=== PATIENT | male | born 1945 | race African-American/Black ===

== ENCOUNTER 2023-09-16 20:49 | Inpatient (IN) | payer OTHER ==
[2023-09-16] MEDS ORDERED: ASPIRIN 81 MG CHEWABLE TABLETS PO ONE (20:58)
[2023-09-16] MEDS ORDERED: ALBUTEROL SO4 2.5/IPRATROPIUM 0.5 INH SOL 3 ML VIAL.NEB. NEB ONE (21:17)
[2023-09-16] MEDS ORDERED: ALBUTEROL SO4 2.5/IPRATROPIUM 0.5 INH SOL 3 ML VIAL.NEB. NEB SCH (21:30)
[2023-09-16] MEDS ORDERED: ATORVASTATIN CA 80 MG TABLET (FP) PO ONE (21:42)
[2023-09-16 21:53] LABS: BASO % 0.3 % (0-2.0); HEMATOCRIT 13.8 % (35.4-49); LYMPH % 8.7 % (8-40); MCH 28.1 pg (25.7-33.7); MCHC 28.4 g/dl (32.0-35.9); MEAN PLT VOLUME 8.1 fl (7.5-11.1); MONO % 6.8 % (3.8-10.2); NEUT % 84.2 % (42.8-82.8); PLATELET COUNT 387 10^3/uL (134-434); RBC 1.39 M/mm3 (4.00-5.60); RDW 21.8 % (11.9-15.9)
[2023-09-16] MEDS ORDERED: ATORVASTATIN CA 80 MG TABLET (FP) ONE (21:53)
[2023-09-16 21:55] LABS: HEMOGLOBIN 3.9 GM/dL (11.7-16.9)
[2023-09-16 21:58] LABS: INR 1.32 (0.83-1.09); PROTHROMBIN TIME (PATIENT) 15.3 SEC (9.7-13.0)
[2023-09-16 22:01] LABS: ACTIVATED PTT 22.6 SECONDS (25.2-36.5)
[2023-09-16 22:03] LABS: CHLORIDE 101 mmol/L (98-107); POTASSIUM 5.4 mmol/L (3.5-5.1); SODIUM 136 mmol/L (136-145)
[2023-09-16 22:05] LABS: ANION GAP 21 mmol/L (4-13); BLOOD UREA NITROGEN 36.2 mg/dL (7-18); CALCIUM 9.1 mg/dL (8.5-10.1); CO2 14 mmol/L (21-32); GLUCOSE,RANDOM 85 mg/dL (74-106); MAGNESIUM 1.9 mg/dL (1.8-2.4)
[2023-09-16 22:06] LABS: ALBUMIN 2.1 g/dl (3.4-5.0)
[2023-09-16 22:08] LABS: SGOT/AST 19 U/L (15-37); SGPT/ALT 8 U/L (13-61)
[2023-09-16 22:10] LABS: BILIRUBIN,TOTAL 0.6 mg/dL (0.2-1); TOT PROT 5.8 g/dl (6.4-8.2)
[2023-09-16] MEDS ORDERED: ACETAMINOPHEN 1000 MG/100 ML BAG IVPB ONE (22:12)
[2023-09-16 22:13] LABS: ALK PHOS 103 U/L (45-117)
[2023-09-16] MEDS ORDERED: ACETAMINOPHEN INJECTION 100 ML IVPB ONE (22:44)
[2023-09-16 23:00] LABS: ARTERIAL BLD GAS O2 SATURATION 98.2 % (95-98); ARTERIAL BLOOD GAS BASE EXCESS -14.3 mmol/L (-2-2); ARTERIAL BLOOD GAS PO2 120.4 mmHg (80-100); ARTERIAL BLOOD GAS pH 7.328 (7.350-7.450)
[2023-09-16 23:01] LABS: ALLENS TEST POSITIVE
[2023-09-16 23:02] LABS: ANISOCYTOSIS 3+; MACROCYTOSIS 1+; TARGET CELLS 2+
[2023-09-16] MEDS ORDERED: RAPID SEQUENCE INTUBATION KIT NR ONE (23:13)
[2023-09-17] MEDS: SODIUM CHLORIDE 1,000 ML IV SCH ×2 (01:36→05:27)
[2023-09-17] MEDS: FENTANYL NS IVPB 500 MCG/100 ML BAG IVPB SCH ×3 (02:10→13:28)
[2023-09-17 02:32] LABS: HEMATOCRIT 18.6 % (35.4-49); MCH 27.9 pg (25.7-33.7); MCHC 29.1 g/dl (32.0-35.9); MEAN CELL VOLUME 95.7 fl (80-96); MEAN PLT VOLUME 7.9 fl (7.5-11.1); PLATELET COUNT 342 10^3/uL (134-434); RBC 1.94 M/mm3 (4.00-5.60); RDW 20.7 % (11.9-15.9); WHITE BLOOD COUNT 26.7 K/mm3 (4.0-10.0)
[2023-09-17] MEDS ORDERED: SODIUM CHLORIDE 1,000 ML IV STA ×3 (02:55→06:58)
[2023-09-17 03:04] LABS: HEMOGLOBIN 5.4 GM/dL (11.7-16.9)
[2023-09-17] MEDS ORDERED: MIDAZOLAM IN 0.9 % SOD.CHLORID 1 MG/1 ML PLAST..BAG ONE (03:11)
[2023-09-17 03:20] LABS: LACTIC ACID 14.2 mmol/L (0.4-2.0)
[2023-09-17] MEDS: MIDAZOLAM IN 0.9 % SOD.CHLORID 100 MG/100 ML PLAST..BAG IVPB SCH ×2 (03:40→13:28)
[2023-09-17] MEDS: MUPIROCIN 2% TOPICAL OINTMENT FOR DECOLONIZATION NS SCH ×3 (05:24→21:10)
[2023-09-17 06:01] LABS: ARTERIAL BLD GAS O2 SATURATION 99.1 % (95-98); ARTERIAL BLOOD GAS BASE EXCESS -12.2 mmol/L (-2-2); ARTERIAL BLOOD GAS PO2 192.8 mmHg (80-100); ARTERIAL BLOOD GAS pH 7.208 (7.350-7.450)
[2023-09-17 06:05] LABS: VENT MODE V-A/C; VENT RATE 12
[2023-09-17] MEDS ORDERED: DEXTROSE 50%-WATER 25 GM/50 ML DISP.SYRIN ONE (06:18)
[2023-09-17] MEDS ORDERED: VANCOMYCIN/WATER FOR INJ (PEG) 1,000 MG/200 ML BAG IVPB ONE (06:30)
[2023-09-17 06:38] LABS: ANISOCYTOSIS 2+; MACROCYTOSIS 0; OVALOCYTE 1+; ROULEAU 1+
[2023-09-17] MEDS ORDERED: DEXTROSE 50%-WATER 25 GM/50 ML DISP.SYRIN IVPUSH ONE (06:45)
[2023-09-17 07:10] LABS: CHLORIDE 102 mmol/L (98-107); POTASSIUM 5.4 mmol/L (3.5-5.1); SODIUM 136 mmol/L (136-145)
[2023-09-17 07:13] LABS: ALBUMIN 1.8 g/dl (3.4-5.0); ANION GAP 16 mmol/L (4-13); BLOOD UREA NITROGEN 39.2 mg/dL (7-18); CO2 18 mmol/L (21-32); GLUCOSE,RANDOM 151 mg/dL (74-106); MAGNESIUM 1.9 mg/dL (1.8-2.4)
[2023-09-17 07:16] LABS: CREATININE 2.2 mg/dL (0.55-1.3); SGOT/AST 76 U/L (15-37); SGPT/ALT 22 U/L (13-61)
[2023-09-17 07:17] LABS: BILIRUBIN,TOTAL 1.7 mg/dL (0.2-1)
[2023-09-17 07:18] LABS: TOT PROT 4.8 g/dl (6.4-8.2)
[2023-09-17 07:19] LABS: ALK PHOS 119 U/L (45-117)
[2023-09-17 07:28] LABS: CALCIUM 7.6 mg/dL (8.5-10.1)
[2023-09-17 08:19] LABS: EPI CELLS 12 /uL (0-25.1); HYALINE CASTS 14 /uL (0-3.1); URINE APPEARANCE CLOUDY; URINE BACTERIA >9,000 /uL (0-1359); URINE BILIRUBIN NEGATIVE (NEGATIVE); URINE COLOR DK YELLOW; URINE GLUCOSE (UA) NEGATIVE (NEGATIVE); URINE KETONE TRACE (NEGATIVE); URINE LEUK ESTERASE TRACE (NEGATIVE); URINE NITRITE NEGATIVE (NEGATIVE); URINE PROTEIN 2+ (NEGATIVE); URINE RBC 19 /uL (0-23.9); URINE WBC 221 /uL (0-25.8)
[2023-09-17] MEDS: CEFTRIAXONE 1 GM in DEXTROSE 5%-WATER - 50 ML IVPB SCH (08:57)
[2023-09-17] MEDS: SODIUM ZIRCONIUM CYCLOSILICATE (LOKELMA) 5 GM PACKET PO SCH (10:10)
[2023-09-17] MEDS: PANTOPRAZOLE SODIUM 40 MG VIAL IVPUSH SCH (10:11)
[2023-09-17 14:37] LABS: LACTIC ACID 3.5 mmol/L (0.4-2.0)
[2023-09-17] MEDS: NOREPINEPHRINE BITARTRATE 4,000 MCG in DEXTROSE 5%-WATER - 496 ML IV SCH (21:09)
[2023-09-17] MEDS: CHLORHEXIDINE GLUCONATE 4% CLEANSER FOR DECOLONIZATION TP SCH (21:10)
[2023-09-17 22:17] LABS: HEMATOCRIT 22.2 % (35.4-49); HEMOGLOBIN 7.2 GM/dL (11.7-16.9); MCH 28.5 pg (25.7-33.7); MCHC 32.3 g/dl (32.0-35.9); MEAN CELL VOLUME 88.3 fl (80-96); MEAN PLT VOLUME 7.3 fl (7.5-11.1); PLATELET COUNT 276 10^3/uL (134-434); RBC 2.51 M/mm3 (4.00-5.60); RDW 17.5 % (11.9-15.9); WHITE BLOOD COUNT 19.7 K/mm3 (4.0-10.0)
[2023-09-18 07:38] LABS: HEMOGLOBIN 8.2 GM/dL (11.7-16.9); MCH 29.3 pg (25.7-33.7); MEAN CELL VOLUME 88.7 fl (80-96); PLATELET COUNT 241 10^3/uL (134-434); RBC 2.81 M/mm3 (4.00-5.60); RDW 17.8 % (11.9-15.9); WHITE BLOOD COUNT 24.3 K/mm3 (4.0-10.0)
[2023-09-18 09:28] LABS: ANISOCYTOSIS 0; MACROCYTOSIS 0
[2023-09-18] MEDS: PANTOPRAZOLE SODIUM 40 MG VIAL IVPUSH SCH (09:37)
[2023-09-18] MEDS: CEFTRIAXONE 1 GM in DEXTROSE 5%-WATER - 50 ML IVPB SCH (09:37)
[2023-09-18] MEDS: NOREPINEPHRINE BITARTRATE 4,000 MCG in DEXTROSE 5%-WATER - 496 ML IV SCH ×2 (09:37→23:32)
[2023-09-18] MEDS: SODIUM ZIRCONIUM CYCLOSILICATE (LOKELMA) 5 GM PACKET PO SCH (09:37)
[2023-09-18] MEDS: MUPIROCIN 2% TOPICAL OINTMENT FOR DECOLONIZATION NS SCH ×2 (09:37→21:02)
[2023-09-18] MEDS: SODIUM CHLORIDE 1,000 ML IV SCH (09:38)
[2023-09-18 11:34] LABS: POTASSIUM 4.3 mmol/L (3.5-5.1)
[2023-09-18 11:37] LABS: CALCIUM 7.9 mg/dL (8.5-10.1)
[2023-09-18 11:38] LABS: BLOOD UREA NITROGEN 42.1 mg/dL (7-18)
[2023-09-18 11:41] LABS: CREATININE 1.9 mg/dL (0.55-1.3)
[2023-09-18 11:42] LABS: TOT PROT 5.4 g/dl (6.4-8.2)
[2023-09-18 11:43] LABS: BILIRUBIN,TOTAL 0.8 mg/dL (0.2-1)
[2023-09-18] MEDS: ALBUTEROL SO4 2.5/IPRATROPIUM 0.5 INH SOL 3 ML VIAL.NEB. NEB SCH ×3 (14:28→20:40)
[2023-09-18] MEDS: SCOPOLAMINE HYDROBROMIDE 1 PATCH PATCH.TD72 TD SCH (14:32)
[2023-09-18] MEDS ORDERED: DEXTROSE 50%-WATER 25 GM/50 ML DISP.SYRIN IVPUSH PRN (16:30)
[2023-09-18] MEDS ORDERED: DEXTROSE 5%-0.45% SALINE 1,000 ML IV SCH (16:45)
[2023-09-18 16:48] LABS: ARTERIAL BLD GAS O2 SATURATION 95.1 % (95-98); ARTERIAL BLOOD GAS BASE EXCESS -5.4 mmol/L (-2-2); ARTERIAL BLOOD GAS pH 7.293 (7.350-7.450)
[2023-09-18 16:53] LABS: ALLENS TEST POSITIVE
[2023-09-18] MEDS ORDERED: DEXTROSE 5%-NORMAL SALINE 1,000 ML IV SCH (17:45)
[2023-09-18] MEDS: CHLORHEXIDINE GLUCONATE 4% CLEANSER FOR DECOLONIZATION TP SCH (21:02)
[2023-09-18] MEDS ORDERED: LACTATED RINGERS SOLUTION 1000 ML INFUS.BAG IV ONE (21:14)
[2023-09-19 06:51] LABS: ARTERIAL BLOOD GAS BASE EXCESS -5.4 mmol/L (-2-2); ARTERIAL BLOOD GAS PO2 120.1 mmHg (80-100); ARTERIAL BLOOD GAS pH 7.301 (7.350-7.450)
[2023-09-19 06:58] LABS: ALLENS TEST POSITIVE
[2023-09-19] MEDS: ALBUTEROL SO4 2.5/IPRATROPIUM 0.5 INH SOL 3 ML VIAL.NEB. NEB SCH ×4 (08:15→20:30)
[2023-09-19 08:23] LABS: HEMATOCRIT 28.2 % (35.4-49); HEMOGLOBIN 9.2 GM/dL (11.7-16.9); MCH 29.3 pg (25.7-33.7); MCHC 32.5 g/dl (32.0-35.9); MEAN PLT VOLUME 8.4 fl (7.5-11.1); PLATELET COUNT 201 10^3/uL (134-434); RBC 3.13 M/mm3 (4.00-5.60); RDW 18.7 % (11.9-15.9); WHITE BLOOD COUNT 19.3 K/mm3 (4.0-10.0)
[2023-09-19 08:37] LABS: POTASSIUM 4.2 mmol/L (3.5-5.1)
[2023-09-19 08:41] LABS: BLOOD UREA NITROGEN 36.8 mg/dL (7-18); CALCIUM 8.2 mg/dL (8.5-10.1)
[2023-09-19 08:42] LABS: ALBUMIN 1.9 g/dl (3.4-5.0)
[2023-09-19 08:45] LABS: CREATININE 1.5 mg/dL (0.55-1.3); PHOSPHOROUS 4.4 mg/dL (2.5-4.9)
[2023-09-19 08:46] LABS: BILIRUBIN,TOTAL 0.7 mg/dL (0.2-1); TOT PROT 5.4 g/dl (6.4-8.2)
[2023-09-19] MEDS: PANTOPRAZOLE SODIUM 40 MG VIAL IVPUSH SCH (09:36)
[2023-09-19] MEDS: CEFTRIAXONE 1 GM in DEXTROSE 5%-WATER - 50 ML IVPB SCH (09:36)
[2023-09-19] MEDS: SODIUM ZIRCONIUM CYCLOSILICATE (LOKELMA) 5 GM PACKET PO SCH (09:37)
[2023-09-19] MEDS: DEXMEDETOMIDINE PREMIX 400 MCG/100 ML BAG IVPB SCH ×2 (09:41→21:16)
[2023-09-19] MEDS: NOREPINEPHRINE BITARTRATE 4,000 MCG in DEXTROSE 5%-WATER - 496 ML IV SCH (09:42)
[2023-09-19] MEDS: MUPIROCIN 2% TOPICAL OINTMENT FOR DECOLONIZATION NS SCH ×2 (10:02→21:15)
[2023-09-19 18:27] LABS: HEMATOCRIT 25.1 % (35.4-49); HEMOGLOBIN 8.2 GM/dL (11.7-16.9); MCH 29.1 pg (25.7-33.7); MCHC 32.8 g/dl (32.0-35.9); MEAN PLT VOLUME 7.7 fl (7.5-11.1); PLATELET COUNT 189 10^3/uL (134-434); RBC 2.82 M/mm3 (4.00-5.60); RDW 18.5 % (11.9-15.9); WHITE BLOOD COUNT 17.9 K/mm3 (4.0-10.0)
[2023-09-19] MEDS: NOREPINEPHRINE BITARTRATE/D5W 8 MG/250 ML BAG IVPB SCH (18:35)
[2023-09-19] MEDS: CHLORHEXIDINE GLUCONATE 4% CLEANSER FOR DECOLONIZATION TP SCH (21:15)
[2023-09-20 06:42] LABS: HEMATOCRIT 26.1 % (35.4-49); HEMOGLOBIN 8.4 GM/dL (11.7-16.9); MCHC 32.2 g/dl (32.0-35.9); MEAN CELL VOLUME 90.1 fl (80-96); MEAN PLT VOLUME 8.3 fl (7.5-11.1); PLATELET COUNT 176 10^3/uL (134-434); RDW 18.8 % (11.9-15.9)
[2023-09-20 07:08] LABS: POTASSIUM 4.5 mmol/L (3.5-5.1)
[2023-09-20 07:10] LABS: BLOOD UREA NITROGEN 33.7 mg/dL (7-18); CALCIUM 8.8 mg/dL (8.5-10.1)
[2023-09-20 07:12] LABS: ALBUMIN 1.8 g/dl (3.4-5.0)
[2023-09-20 07:14] LABS: CREATININE 1.2 mg/dL (0.55-1.3)
[2023-09-20 07:16] LABS: BILIRUBIN,TOTAL 0.6 mg/dL (0.2-1); TOT PROT 5.3 g/dl (6.4-8.2)
[2023-09-20] MEDS: SODIUM CHLORIDE FOR INHALATION 3 ML VIAL.NEB IH SCH ×4 (07:30→20:17)
[2023-09-20] MEDS: ALBUTEROL SO4 2.5/IPRATROPIUM 0.5 INH SOL 3 ML VIAL.NEB. NEB SCH ×4 (07:30→20:17)
[2023-09-20 08:52] LABS: ANISOCYTOSIS 2+; MACROCYTOSIS 2+
[2023-09-20] MEDS: DEXMEDETOMIDINE PREMIX 400 MCG/100 ML BAG IVPB SCH ×3 (09:07→21:28)
[2023-09-20] MEDS: CEFTRIAXONE 1 GM in DEXTROSE 5%-WATER - 50 ML IVPB SCH (09:21)
[2023-09-20] MEDS: MUPIROCIN 2% TOPICAL OINTMENT FOR DECOLONIZATION NS SCH ×2 (09:21→21:30)
[2023-09-20] MEDS: PANTOPRAZOLE SODIUM 40 MG VIAL IVPUSH SCH (09:21)
[2023-09-20] MEDS: SODIUM ZIRCONIUM CYCLOSILICATE (LOKELMA) 5 GM PACKET PO SCH (09:23)
[2023-09-20] MEDS ORDERED: DEXTROSE 5%-0.45% SALINE 1,000 ML IV SCH (11:30)
[2023-09-20 14:20] VITALS: BMI 27.9
[2023-09-20] MEDS: NOREPINEPHRINE BITARTRATE/D5W 8 MG/250 ML BAG IVPB SCH (18:05)
[2023-09-20 19:07] LABS: HEMATOCRIT 26.6 % (35.4-49); HEMOGLOBIN 8.2 GM/dL (11.7-16.9); MEAN CELL VOLUME 90.6 fl (80-96); MEAN PLT VOLUME 8.2 fl (7.5-11.1); PLATELET COUNT 173 10^3/uL (134-434); RBC 2.93 M/mm3 (4.00-5.60); RDW 18.7 % (11.9-15.9); WHITE BLOOD COUNT 14.9 K/mm3 (4.0-10.0)
[2023-09-20] MEDS: CHLORHEXIDINE GLUCONATE 4% CLEANSER FOR DECOLONIZATION TP SCH (21:29)
[2023-09-21] MEDS: ALBUTEROL SO4 2.5/IPRATROPIUM 0.5 INH SOL 3 ML VIAL.NEB. NEB SCH ×4 (07:15→19:27)
[2023-09-21] MEDS: SODIUM CHLORIDE FOR INHALATION 3 ML VIAL.NEB IH SCH ×4 (07:15→19:36)
[2023-09-21 07:53] LABS: HEMATOCRIT 26.7 % (35.4-49); HEMOGLOBIN 8.4 GM/dL (11.7-16.9); MCH 28.4 pg (25.7-33.7); MCHC 31.6 g/dl (32.0-35.9); MEAN CELL VOLUME 90.1 fl (80-96); MEAN PLT VOLUME 8.5 fl (7.5-11.1); PLATELET COUNT 175 10^3/uL (134-434); RBC 2.96 M/mm3 (4.00-5.60); RDW 19.2 % (11.9-15.9); WHITE BLOOD COUNT 14.8 K/mm3 (4.0-10.0)
[2023-09-21 08:08] LABS: POTASSIUM 4.1 mmol/L (3.5-5.1)
[2023-09-21 08:14] LABS: ALBUMIN 1.6 g/dl (3.4-5.0); CALCIUM 8.6 mg/dL (8.5-10.1); MAGNESIUM 2.1 mg/dL (1.8-2.4)
[2023-09-21 08:17] LABS: PHOSPHOROUS 3.1 mg/dL (2.5-4.9)
[2023-09-21 08:18] LABS: BILIRUBIN,TOTAL 0.8 mg/dL (0.2-1); TOT PROT 5.1 g/dl (6.4-8.2)
[2023-09-21] MEDS: DEXMEDETOMIDINE PREMIX 400 MCG/100 ML BAG IVPB SCH ×2 (09:27→17:32)
[2023-09-21] MEDS: CEFTRIAXONE 1 GM in DEXTROSE 5%-WATER - 50 ML IVPB SCH (09:27)
[2023-09-21] MEDS: PANTOPRAZOLE SODIUM 40 MG VIAL IVPUSH SCH (09:27)
[2023-09-21] MEDS: SODIUM ZIRCONIUM CYCLOSILICATE (LOKELMA) 5 GM PACKET PO SCH (09:27)
[2023-09-21] MEDS: MUPIROCIN 2% TOPICAL OINTMENT FOR DECOLONIZATION NS SCH ×2 (09:27→21:00)
[2023-09-21] MEDS: DEXTROSE 5%-0.45% SALINE 1,000 ML IV SCH (09:55)
[2023-09-21] MEDS: IRON SUCROSE INJECTION 200 MG in SODIUM CHLORIDE 90 ML IVPB SCH (11:14)
[2023-09-21] MEDS: SCOPOLAMINE HYDROBROMIDE 1 PATCH PATCH.TD72 TD SCH (14:00)
[2023-09-21 19:34] LABS: HEMATOCRIT 25.6 % (35.4-49); MCH 28.6 pg (25.7-33.7); MCHC 31.3 g/dl (32.0-35.9); MEAN CELL VOLUME 91.6 fl (80-96); MEAN PLT VOLUME 8.1 fl (7.5-11.1); PLATELET COUNT 160 10^3/uL (134-434); RBC 2.79 M/mm3 (4.00-5.60); RDW 18.8 % (11.9-15.9); WHITE BLOOD COUNT 14.7 K/mm3 (4.0-10.0)
[2023-09-21] MEDS: CHLORHEXIDINE GLUCONATE 4% CLEANSER FOR DECOLONIZATION TP SCH (21:00)
[2023-09-21] MEDS: NOREPINEPHRINE BITARTRATE/D5W 8 MG/250 ML BAG IVPB SCH (22:16)
[2023-09-22] MEDS: SODIUM CHLORIDE FOR INHALATION 3 ML VIAL.NEB IH SCH ×4 (07:20→20:35)
[2023-09-22] MEDS: ALBUTEROL SO4 2.5/IPRATROPIUM 0.5 INH SOL 3 ML VIAL.NEB. NEB SCH ×4 (07:20→20:35)
[2023-09-22 08:20] LABS: HEMATOCRIT 25.2 % (35.4-49); HEMOGLOBIN 8.1 GM/dL (11.7-16.9); MCHC 31.9 g/dl (32.0-35.9); MEAN CELL VOLUME 90.9 fl (80-96); MEAN PLT VOLUME 8.8 fl (7.5-11.1); PLATELET COUNT 159 10^3/uL (134-434); RBC 2.78 M/mm3 (4.00-5.60); RDW 18.9 % (11.9-15.9); WHITE BLOOD COUNT 15.1 K/mm3 (4.0-10.0)
[2023-09-22 08:39] LABS: POTASSIUM 3.9 mmol/L (3.5-5.1)
[2023-09-22 08:46] LABS: ALBUMIN 1.4 g/dl (3.4-5.0); BLOOD UREA NITROGEN 22.8 mg/dL (7-18); CALCIUM 8.6 mg/dL (8.5-10.1)
[2023-09-22 08:48] LABS: PHOSPHOROUS 3.3 mg/dL (2.5-4.9)
[2023-09-22 08:49] LABS: CREATININE 0.9 mg/dL (0.55-1.3)
[2023-09-22 08:50] LABS: BILIRUBIN,TOTAL 0.7 mg/dL (0.2-1); TOT PROT 4.7 g/dl (6.4-8.2)
[2023-09-22] MEDS: CEFTRIAXONE 1 GM in DEXTROSE 5%-WATER - 50 ML IVPB SCH (09:51)
[2023-09-22] MEDS: DEXTROSE 5%-0.45% SALINE 1,000 ML IV SCH (09:51)
[2023-09-22] MEDS: IRON SUCROSE INJECTION 200 MG in SODIUM CHLORIDE 90 ML IVPB SCH (09:51)
[2023-09-22] MEDS: DEXMEDETOMIDINE PREMIX 400 MCG/100 ML BAG IVPB SCH (09:51)
[2023-09-22] MEDS: PANTOPRAZOLE SODIUM 40 MG VIAL IVPUSH SCH (09:52)
[2023-09-22] MEDS ORDERED: VANCOMYCIN/WATER FOR INJ (PEG) 1,000 MG/200 ML BAG IVPB ONE (11:30)
[2023-09-22] MEDS ORDERED: PIPERACILLIN/TAZOB 3.375 GM 3.375 GM in DEXTROSE 5%-WATER - 50 ML IVPB ONE (11:30)
[2023-09-22] MEDS ORDERED: AMINO ACIDS 4.25%/D5W 1,000 ML IV SCH (12:00)
[2023-09-22] MEDS: AMINO ACIDS 4.25%/D5W 1,000 ML IV SCH (14:14)
[2023-09-22] MEDS: MEROPENEM 1 GM in DEXTROSE 5%-WATER 100 ML IVPB SCH (18:06)
[2023-09-22] MEDS: NOREPINEPHRINE BITARTRATE/D5W 8 MG/250 ML BAG IVPB SCH (18:06)
[2023-09-22 21:31] LABS: HEMATOCRIT 25.9 % (35.4-49); HEMOGLOBIN 8.1 GM/dL (11.7-16.9); MCH 28.4 pg (25.7-33.7); MCHC 31.1 g/dl (32.0-35.9); MEAN CELL VOLUME 91.3 fl (80-96); MEAN PLT VOLUME 8.6 fl (7.5-11.1); PLATELET COUNT 165 10^3/uL (134-434); RBC 2.83 M/mm3 (4.00-5.60); RDW 18.5 % (11.9-15.9); WHITE BLOOD COUNT 17.3 K/mm3 (4.0-10.0)
[2023-09-22] MEDS: CHLORHEXIDINE GLUCONATE 4% CLEANSER FOR DECOLONIZATION TP SCH (21:58)
[2023-09-23] MEDS: MEROPENEM 1 GM in DEXTROSE 5%-WATER 100 ML IVPB SCH ×3 (02:00→18:23)
[2023-09-23] MEDS: AMINO ACIDS 4.25%/D5W 1,000 ML IV SCH ×2 (03:00→13:33)
[2023-09-23 07:59] LABS: HEMATOCRIT 25.8 % (35.4-49); HEMOGLOBIN 8.1 GM/dL (11.7-16.9); MCH 28.8 pg (25.7-33.7); MCHC 31.4 g/dl (32.0-35.9); MEAN CELL VOLUME 91.9 fl (80-96); MEAN PLT VOLUME 8.9 fl (7.5-11.1); PLATELET COUNT 166 10^3/uL (134-434); RBC 2.81 M/mm3 (4.00-5.60); RDW 18.7 % (11.9-15.9); WHITE BLOOD COUNT 19.4 K/mm3 (4.0-10.0)
[2023-09-23] MEDS: SODIUM CHLORIDE FOR INHALATION 3 ML VIAL.NEB IH SCH ×4 (08:02→20:15)
[2023-09-23] MEDS: ALBUTEROL SO4 2.5/IPRATROPIUM 0.5 INH SOL 3 ML VIAL.NEB. NEB SCH ×4 (08:02→20:15)
[2023-09-23 08:06] LABS: POTASSIUM 3.7 mmol/L (3.5-5.1)
[2023-09-23 08:08] LABS: CALCIUM 8.2 mg/dL (8.5-10.1)
[2023-09-23 08:09] LABS: ALBUMIN 1.5 g/dl (3.4-5.0); BLOOD UREA NITROGEN 19.9 mg/dL (7-18); MAGNESIUM 1.9 mg/dL (1.8-2.4)
[2023-09-23 08:12] LABS: CREATININE 0.8 mg/dL (0.55-1.3); PHOSPHOROUS 3.2 mg/dL (2.5-4.9)
[2023-09-23 08:13] LABS: BILIRUBIN,TOTAL 0.5 mg/dL (0.2-1)
[2023-09-23] MEDS: IRON SUCROSE INJECTION 200 MG in SODIUM CHLORIDE 90 ML IVPB SCH (09:53)
[2023-09-23] MEDS: PANTOPRAZOLE SODIUM 40 MG VIAL IVPUSH SCH (09:53)
[2023-09-23] MEDS ORDERED: POTASSIUM CHLORIDE 10 MEQ in SODIUM CHLORIDE 0.45% 1,000 ML IVPB SCH (14:00)
[2023-09-23] MEDS: DEXMEDETOMIDINE PREMIX 400 MCG/100 ML BAG IVPB SCH ×2 (14:28→20:45)
[2023-09-23] MEDS: CHLORHEXIDINE GLUCONATE 4% CLEANSER FOR DECOLONIZATION TP SCH (21:09)
[2023-09-24] MEDS: NOREPINEPHRINE BITARTRATE/D5W 8 MG/250 ML BAG IVPB SCH (01:04)
[2023-09-24] MEDS: MEROPENEM 1 GM in DEXTROSE 5%-WATER 100 ML IVPB SCH ×3 (01:05→18:30)
[2023-09-24] MEDS: AMINO ACIDS 4.25%/D5W 1,000 ML IV SCH ×2 (01:05→13:55)
[2023-09-24 07:21] LABS: HEMATOCRIT 23.7 % (35.4-49); HEMOGLOBIN 7.6 GM/dL (11.7-16.9); MCH 29.3 pg (25.7-33.7); MCHC 32.1 g/dl (32.0-35.9); MEAN CELL VOLUME 91.2 fl (80-96); MEAN PLT VOLUME 9.2 fl (7.5-11.1); PLATELET COUNT 165 10^3/uL (134-434); RDW 18.2 % (11.9-15.9); WHITE BLOOD COUNT 19.1 K/mm3 (4.0-10.0)
[2023-09-24 07:41] LABS: POTASSIUM 3.5 mmol/L (3.5-5.1)
[2023-09-24 07:43] LABS: CALCIUM 8.1 mg/dL (8.5-10.1)
[2023-09-24 07:44] LABS: ALBUMIN 1.5 g/dl (3.4-5.0); BLOOD UREA NITROGEN 21.5 mg/dL (7-18); MAGNESIUM 1.8 mg/dL (1.8-2.4)
[2023-09-24] MEDS: ALBUTEROL SO4 2.5/IPRATROPIUM 0.5 INH SOL 3 ML VIAL.NEB. NEB SCH ×4 (07:45→20:14)
[2023-09-24] MEDS: SODIUM CHLORIDE FOR INHALATION 3 ML VIAL.NEB IH SCH ×4 (07:45→20:14)
[2023-09-24 07:46] LABS: CREATININE 0.7 mg/dL (0.55-1.3)
[2023-09-24 07:47] LABS: PHOSPHOROUS 2.6 mg/dL (2.5-4.9)
[2023-09-24 07:48] LABS: BILIRUBIN,TOTAL 0.5 mg/dL (0.2-1); TOT PROT 4.9 g/dl (6.4-8.2)
[2023-09-24] MEDS ORDERED: LACTATED RINGERS SOLUTION 1,000 ML/1,000 ML INFUS.BAG IV STA (09:35)
[2023-09-24] MEDS: IRON SUCROSE INJECTION 200 MG in SODIUM CHLORIDE 90 ML IVPB SCH (10:38)
[2023-09-24] MEDS: PANTOPRAZOLE SODIUM 40 MG VIAL IVPUSH SCH (10:39)
[2023-09-24] MEDS: LACTATED RINGERS SOLUTION 1,000 ML/1,000 ML INFUS.BAG IV SCH (12:49)
[2023-09-24] MEDS: DEXMEDETOMIDINE PREMIX 400 MCG/100 ML BAG IVPB SCH (12:49)
[2023-09-24] MEDS: SCOPOLAMINE HYDROBROMIDE 1 PATCH PATCH.TD72 TD SCH (13:55)
[2023-09-24] MEDS ORDERED: DEXMEDETOMIDINE PREMIX 400 MCG/100 ML BAG IVPB SCH (22:00)
[2023-09-24] MEDS: CHLORHEXIDINE GLUCONATE 4% CLEANSER FOR DECOLONIZATION TP SCH (22:30)
[2023-09-25] MEDS: MEROPENEM 1 GM in DEXTROSE 5%-WATER 100 ML IVPB SCH ×3 (01:11→18:23)
[2023-09-25] MEDS: LACTATED RINGERS SOLUTION 1,000 ML/1,000 ML INFUS.BAG IV SCH ×2 (02:36→11:32)
[2023-09-25] MEDS: AMINO ACIDS 4.25%/D5W 1,000 ML IV SCH ×2 (02:40→13:15)
[2023-09-25 07:16] LABS: MCHC 31.4 g/dl (32.0-35.9); MEAN CELL VOLUME 92.2 fl (80-96); MEAN PLT VOLUME 9.5 fl (7.5-11.1); PLATELET COUNT 157 10^3/uL (134-434); RBC 2.39 M/mm3 (4.00-5.60); RDW 18.9 % (11.9-15.9); WHITE BLOOD COUNT 16.9 K/mm3 (4.0-10.0)
[2023-09-25] MEDS: SODIUM CHLORIDE FOR INHALATION 3 ML VIAL.NEB IH SCH ×4 (07:20→20:01)
[2023-09-25] MEDS: ALBUTEROL SO4 2.5/IPRATROPIUM 0.5 INH SOL 3 ML VIAL.NEB. NEB SCH ×4 (07:20→20:01)
[2023-09-25 07:32] LABS: POTASSIUM 3.3 mmol/L (3.5-5.1)
[2023-09-25 07:37] LABS: CALCIUM 7.8 mg/dL (8.5-10.1); HEMOGLOBIN 6.9 GM/dL (11.7-16.9)
[2023-09-25 07:38] LABS: ALBUMIN 1.5 g/dl (3.4-5.0); BLOOD UREA NITROGEN 26.1 mg/dL (7-18); MAGNESIUM 1.7 mg/dL (1.8-2.4)
[2023-09-25 07:41] LABS: CREATININE 0.7 mg/dL (0.55-1.3); PHOSPHOROUS 2.3 mg/dL (2.5-4.9)
[2023-09-25 07:42] LABS: BILIRUBIN,TOTAL 0.7 mg/dL (0.2-1); TOT PROT 4.8 g/dl (6.4-8.2)
[2023-09-25] MEDS ORDERED: POTASSIUM CHLORIDE ORAL LIQUID 20 MEQ/15 ML PO ONE (07:43)
[2023-09-25] MEDS ORDERED: NAPH,MB-DB/K PH,MBDB POWDER PACKET PO ONE (07:48)
[2023-09-25] MEDS ORDERED: MAGNESIUM OXIDE 400 MG TABLET (FP) PO ONE (07:48)
[2023-09-25] MEDS ORDERED: KCL 20 MEQ PREMIX BAG 100 ML IVPB ONE (08:30)
[2023-09-25] MEDS: PANTOPRAZOLE SODIUM 40 MG VIAL IVPUSH SCH (09:02)
[2023-09-25] MEDS ORDERED: MAGNESIUM SULF 50% (8.12 MEQ/2 ML-1 GM VIAL) IVPB ONE (09:20)
[2023-09-25] MEDS: IRON SUCROSE INJECTION 200 MG in SODIUM CHLORIDE 90 ML IVPB SCH (10:27)
[2023-09-25] MEDS ORDERED: MIDODRINE HCL 5 MG TABLET PO SCH (10:47)
[2023-09-25] MEDS: MIDODRINE HCL 5 MG TABLET PO SCH (18:23)
[2023-09-25] MEDS: CHLORHEXIDINE GLUCONATE 4% CLEANSER FOR DECOLONIZATION TP SCH (22:03)
[2023-09-26] MEDS: MEROPENEM 1 GM in DEXTROSE 5%-WATER 100 ML IVPB SCH ×3 (01:51→18:29)
[2023-09-26 07:23] LABS: BASO % 0.2 % (0-2.0); EOS % 1.6 % (0-4.5); HEMATOCRIT 27.2 % (35.4-49); HEMOGLOBIN 8.7 GM/dL (11.7-16.9); LYMPH % 5.4 % (8-40); MCH 29.2 pg (25.7-33.7); MCHC 32.1 g/dl (32.0-35.9); MEAN CELL VOLUME 90.9 fl (80-96); MEAN PLT VOLUME 9.3 fl (7.5-11.1); MONO % 6.9 % (3.8-10.2); NEUT % 85.9 % (42.8-82.8); PLATELET COUNT 195 10^3/uL (134-434); RBC 2.99 M/mm3 (4.00-5.60); RDW 17.3 % (11.9-15.9); WHITE BLOOD COUNT 19.1 K/mm3 (4.0-10.0)
[2023-09-26 07:52] LABS: POTASSIUM 3.2 mmol/L (3.5-5.1)
[2023-09-26 08:00] LABS: CALCIUM 8.8 mg/dL (8.5-10.1); MAGNESIUM 1.8 mg/dL (1.8-2.4)
[2023-09-26 08:03] LABS: BLOOD UREA NITROGEN 23.3 mg/dL (7-18)
[2023-09-26 08:06] LABS: CREATININE 0.6 mg/dL (0.55-1.3)
[2023-09-26] MEDS: ALBUTEROL SO4 2.5/IPRATROPIUM 0.5 INH SOL 3 ML VIAL.NEB. NEB SCH ×4 (08:30→20:25)
[2023-09-26] MEDS: SODIUM CHLORIDE FOR INHALATION 3 ML VIAL.NEB IH SCH ×4 (08:31→20:25)
[2023-09-26] MEDS: PANTOPRAZOLE SODIUM 40 MG VIAL IVPUSH SCH (09:14)
[2023-09-26] MEDS: MIDODRINE HCL 5 MG TABLET PO SCH ×3 (09:15→18:24)
[2023-09-26] MEDS: LACTATED RINGERS SOLUTION 1,000 ML/1,000 ML INFUS.BAG IV SCH (13:39)
[2023-09-26] MEDS: AMINO ACIDS 4.25%/D5W 1,000 ML IV SCH ×2 (16:00→16:01)
[2023-09-26] MEDS ORDERED: LACTATED RINGERS SOLUTION 1,000 ML/1,000 ML INFUS.BAG IV SCH (16:07)
[2023-09-26] MEDS ORDERED: DEXTROSE 50%-WATER 25 GM/50 ML DISP.SYRIN IVPUSH PRN (16:07)
[2023-09-26] MEDS ORDERED: CHLORHEXIDINE GLUCONATE 4% CLEANSER FOR DECOLONIZATION TP SCH (22:00)
[2023-09-27] MEDS: MEROPENEM 1 GM in DEXTROSE 5%-WATER 100 ML IVPB SCH ×3 (01:59→17:47)
[2023-09-27] MEDS: AMINO ACIDS 4.25%/D5W 1,000 ML IV SCH ×2 (03:05→14:47)
[2023-09-27] MEDS: ALBUTEROL SO4 2.5/IPRATROPIUM 0.5 INH SOL 3 ML VIAL.NEB. NEB SCH ×4 (07:26→21:05)
[2023-09-27] MEDS: SODIUM CHLORIDE FOR INHALATION 3 ML VIAL.NEB IH SCH ×4 (07:27→21:06)
[2023-09-27] MEDS ORDERED: PANTOPRAZOLE SODIUM 40 MG VIAL IVPUSH SCH (10:00)
[2023-09-27] MEDS: MIDODRINE HCL 5 MG TABLET PO SCH ×3 (10:15→17:47)
[2023-09-27 10:49] LABS: BASO % 0.2 % (0-2.0); EOS % 0.8 % (0-4.5); HEMATOCRIT 26.7 % (35.4-49); HEMOGLOBIN 8.6 GM/dL (11.7-16.9); LYMPH % 8.7 % (8-40); MCH 28.9 pg (25.7-33.7); MCHC 32.1 g/dl (32.0-35.9); MEAN CELL VOLUME 90.1 fl (80-96); MEAN PLT VOLUME 9.4 fl (7.5-11.1); MONO % 6.5 % (3.8-10.2); NEUT % 83.8 % (42.8-82.8); PLATELET COUNT 239 10^3/uL (134-434); RBC 2.97 M/mm3 (4.00-5.60); RDW 17.9 % (11.9-15.9); WHITE BLOOD COUNT 16.5 K/mm3 (4.0-10.0)
[2023-09-27 10:53] LABS: POTASSIUM 3.2 mmol/L (3.5-5.1)
[2023-09-27 10:54] LABS: BLOOD UREA NITROGEN 23.9 mg/dL (7-18); CALCIUM 9.3 mg/dL (8.5-10.1)
[2023-09-27 10:58] LABS: CREATININE 0.7 mg/dL (0.55-1.3)
[2023-09-27 10:59] LABS: BILIRUBIN,TOTAL 0.5 mg/dL (0.2-1); TOT PROT 5.4 g/dl (6.4-8.2)
[2023-09-27 11:02] LABS: ALBUMIN 1.8 g/dl (3.4-5.0)
[2023-09-27] MEDS ORDERED: POTASSIUM CHLORIDE ORAL LIQUID 20 MEQ/15 ML PO ONE (13:45)
[2023-09-27] MEDS ORDERED: SCOPOLAMINE HYDROBROMIDE 1 PATCH PATCH.TD72 TD SCH (14:00)
[2023-09-27 14:16] LABS: MAGNESIUM 1.9 mg/dL (1.8-2.4)
[2023-09-27 14:20] LABS: PHOSPHOROUS 2.5 mg/dL (2.5-4.9)
[2023-09-27] MEDS ORDERED: ACETAMINOPHEN 1000 MG/100 ML BAG IVPB PRN (15:13)
[2023-09-28] MEDS: MEROPENEM 1 GM in DEXTROSE 5%-WATER 100 ML IVPB SCH ×3 (01:45→18:30)
[2023-09-28] MEDS: SODIUM CHLORIDE FOR INHALATION 3 ML VIAL.NEB IH SCH ×4 (07:32→20:16)
[2023-09-28] MEDS: ALBUTEROL SO4 2.5/IPRATROPIUM 0.5 INH SOL 3 ML VIAL.NEB. NEB SCH ×4 (07:32→20:16)
[2023-09-28] MEDS: MIDODRINE HCL 5 MG TABLET PO SCH ×3 (10:43→18:30)
[2023-09-28] MEDS: LIDOCAINE 4% PATCH TP SCH (14:46)
[2023-09-28] MEDS: ENOXAPARIN NA (PORCINE) 100 MG/1 ML DISP.SYRIN SQ SCH (21:32)
[2023-09-28] MEDS: LIDOCAINE PATCH REMOVAL MC SCH (21:35)
[2023-09-28] MEDS ORDERED: ENOXAPARIN NA (PORCINE) 80 MG/0.8 ML DISP.SYRIN SQ SCH (22:00)
[2023-09-29] MEDS: MEROPENEM 1 GM in DEXTROSE 5%-WATER 100 ML IVPB SCH ×3 (02:53→17:53)
[2023-09-29] MEDS: SODIUM CHLORIDE FOR INHALATION 3 ML VIAL.NEB IH SCH ×4 (08:30→20:39)
[2023-09-29] MEDS: ALBUTEROL SO4 2.5/IPRATROPIUM 0.5 INH SOL 3 ML VIAL.NEB. NEB SCH ×4 (08:30→20:38)
[2023-09-29] MEDS: LIDOCAINE 4% PATCH TP SCH (09:08)
[2023-09-29] MEDS: MIDODRINE HCL 5 MG TABLET PO SCH ×4 (09:08→18:04)
[2023-09-29] MEDS: ENOXAPARIN NA (PORCINE) 100 MG/1 ML DISP.SYRIN SQ SCH (09:09)
[2023-09-29 10:05] LABS: BASO % 0.4 % (0-2.0); EOS % 1.3 % (0-4.5); HEMOGLOBIN 8.4 GM/dL (11.7-16.9); LYMPH % 8.8 % (8-40); MCH 28.7 pg (25.7-33.7); MCHC 31.3 g/dl (32.0-35.9); MEAN CELL VOLUME 91.9 fl (80-96); MEAN PLT VOLUME 9.6 fl (7.5-11.1); MONO % 8.4 % (3.8-10.2); NEUT % 81.1 % (42.8-82.8); PLATELET COUNT 252 10^3/uL (134-434); RBC 2.94 M/mm3 (4.00-5.60); RDW 18.7 % (11.9-15.9); WHITE BLOOD COUNT 14.1 K/mm3 (4.0-10.0)
[2023-09-29 10:28] LABS: POTASSIUM 3.4 mmol/L (3.5-5.1)
[2023-09-29 10:29] LABS: CALCIUM 9.2 mg/dL (8.5-10.1)
[2023-09-29 10:30] LABS: ALBUMIN 1.9 g/dl (3.4-5.0); BLOOD UREA NITROGEN 17.2 mg/dL (7-18)
[2023-09-29 10:33] LABS: CREATININE 0.6 mg/dL (0.55-1.3)
[2023-09-29 10:35] LABS: BILIRUBIN,TOTAL 0.6 mg/dL (0.2-1); TOT PROT 5.4 g/dl (6.4-8.2)
[2023-09-29] MEDS: LIDOCAINE PATCH REMOVAL MC SCH (21:43)
[2023-09-30] MEDS: MEROPENEM 1 GM in DEXTROSE 5%-WATER 100 ML IVPB SCH ×2 (01:37→09:03)
[2023-09-30] MEDS: ALBUTEROL SO4 2.5/IPRATROPIUM 0.5 INH SOL 3 ML VIAL.NEB. NEB SCH ×4 (07:55→20:25)
[2023-09-30] MEDS: SODIUM CHLORIDE FOR INHALATION 3 ML VIAL.NEB IH SCH ×4 (08:00→20:25)
[2023-09-30] MEDS: LIDOCAINE 4% PATCH TP SCH (09:03)
[2023-09-30] MEDS: MIDODRINE HCL 5 MG TABLET PO SCH ×3 (09:03→17:40)
[2023-09-30 10:30] LABS: HEMATOCRIT 26.5 % (35.4-49); HEMOGLOBIN 8.4 GM/dL (11.7-16.9); MCH 29.2 pg (25.7-33.7); MCHC 31.8 g/dl (32.0-35.9); MEAN CELL VOLUME 91.8 fl (80-96); MEAN PLT VOLUME 9.7 fl (7.5-11.1); PLATELET COUNT 260 10^3/uL (134-434); RBC 2.88 M/mm3 (4.00-5.60); RDW 18.4 % (11.9-15.9); WHITE BLOOD COUNT 12.1 K/mm3 (4.0-10.0)
[2023-09-30 10:45] LABS: POTASSIUM 3.1 mmol/L (3.5-5.1)
[2023-09-30 10:48] LABS: CALCIUM 9.4 mg/dL (8.5-10.1)
[2023-09-30 10:49] LABS: BLOOD UREA NITROGEN 15.3 mg/dL (7-18); MAGNESIUM 2.1 mg/dL (1.8-2.4)
[2023-09-30 10:52] LABS: CREATININE 0.7 mg/dL (0.55-1.3); PHOSPHOROUS 3.1 mg/dL (2.5-4.9)
[2023-09-30] MEDS ORDERED: POTASSIUM CHLORIDE ORAL LIQUID 20 MEQ/15 ML PO ONE (13:30)
[2023-09-30] MEDS: KCL 10 MEQ IVPB 10 MEQ/100 ML INFUS.BAG IVPB SCH ×2 (14:12→16:00)
[2023-09-30] MEDS: LIDOCAINE PATCH REMOVAL MC SCH (21:36)
[2023-10-01] MEDS: ALBUTEROL SO4 2.5/IPRATROPIUM 0.5 INH SOL 3 ML VIAL.NEB. NEB SCH ×3 (07:50→15:09)
[2023-10-01] MEDS: SODIUM CHLORIDE FOR INHALATION 3 ML VIAL.NEB IH SCH ×4 (07:51→19:54)
[2023-10-01 09:28] LABS: HEMATOCRIT 26.5 % (35.4-49); HEMOGLOBIN 8.4 GM/dL (11.7-16.9); MCH 28.8 pg (25.7-33.7); MCHC 31.6 g/dl (32.0-35.9); MEAN CELL VOLUME 91.2 fl (80-96); MEAN PLT VOLUME 9.2 fl (7.5-11.1); PLATELET COUNT 262 10^3/uL (134-434); RBC 2.91 M/mm3 (4.00-5.60); RDW 18.2 % (11.9-15.9); WHITE BLOOD COUNT 11.9 K/mm3 (4.0-10.0)
[2023-10-01] MEDS: LIDOCAINE 4% PATCH TP SCH (09:31)
[2023-10-01] MEDS: MIDODRINE HCL 5 MG TABLET PO SCH ×3 (09:31→17:11)
[2023-10-01 09:43] LABS: POTASSIUM 3.2 mmol/L (3.5-5.1)
[2023-10-01 09:45] LABS: ALBUMIN 1.8 g/dl (3.4-5.0); BLOOD UREA NITROGEN 16.2 mg/dL (7-18); CALCIUM 9.6 mg/dL (8.5-10.1)
[2023-10-01 09:48] LABS: CREATININE 0.6 mg/dL (0.55-1.3); PHOSPHOROUS 3.2 mg/dL (2.5-4.9)
[2023-10-01 09:50] LABS: BILIRUBIN,TOTAL 0.5 mg/dL (0.2-1); TOT PROT 5.4 g/dl (6.4-8.2)
[2023-10-01] MEDS: KCL 10 MEQ IVPB 10 MEQ/100 ML INFUS.BAG IVPB SCH ×3 (13:54→22:37)
[2023-10-01] MEDS ORDERED: KCL 10 MEQ IVPB 10 MEQ/100 ML INFUS.BAG IVPB SCH (22:15)
[2023-10-01] MEDS: LIDOCAINE PATCH REMOVAL MC SCH (22:38)
[2023-10-02] MEDS: SODIUM CHLORIDE FOR INHALATION 3 ML VIAL.NEB IH SCH ×4 (07:50→20:26)
[2023-10-02 08:33] LABS: HEMOGLOBIN 8.1 GM/dL (11.7-16.9); MCH 29.2 pg (25.7-33.7); MCHC 32.4 g/dl (32.0-35.9); MEAN CELL VOLUME 90.2 fl (80-96); PLATELET COUNT 264 10^3/uL (134-434); RBC 2.77 M/mm3 (4.00-5.60); RDW 18.1 % (11.9-15.9); WHITE BLOOD COUNT 12.4 K/mm3 (4.0-10.0)
[2023-10-02 08:45] LABS: POTASSIUM 3.1 mmol/L (3.5-5.1)
[2023-10-02 08:54] LABS: ALBUMIN 1.8 g/dl (3.4-5.0); BLOOD UREA NITROGEN 14.5 mg/dL (7-18); CALCIUM 9.2 mg/dL (8.5-10.1); MAGNESIUM 1.9 mg/dL (1.8-2.4)
[2023-10-02 08:57] LABS: CREATININE 0.7 mg/dL (0.55-1.3); PHOSPHOROUS 2.8 mg/dL (2.5-4.9)
[2023-10-02 08:58] LABS: TOT PROT 5.4 g/dl (6.4-8.2)
[2023-10-02 08:59] LABS: BILIRUBIN,TOTAL 0.9 mg/dL (0.2-1)
[2023-10-02] MEDS: MIDODRINE HCL 5 MG TABLET PO SCH ×3 (09:28→17:30)
[2023-10-02] MEDS: LIDOCAINE 4% PATCH TP SCH ×2 (09:28→09:31)
[2023-10-02] MEDS ORDERED: DEXTROSE 5%-WATER - 1,000 ML with POTASSIUM CHLORIDE 10 MEQ IV SCH (16:30)
[2023-10-02] MEDS: POTASSIUM CHLORIDE ORAL LIQUID 20 MEQ/15 ML PO ONE ×2 (17:30→17:36)
[2023-10-02] MEDS: POTASSIUM CHLORIDE TABS 20 MEQ TABLET.ER (FP) PO SCH ×2 (17:38→17:51)
[2023-10-02] MEDS: KCL 10 MEQ IVPB 10 MEQ/100 ML INFUS.BAG IVPB SCH ×2 (18:15→18:16)
[2023-10-02] MEDS: LIDOCAINE PATCH REMOVAL MC SCH (22:25)
[2023-10-03] MEDS ORDERED: ACETAMINOPHEN 325 MG TABLET (FP) PO ONE (03:36)
[2023-10-03] MEDS: SODIUM CHLORIDE FOR INHALATION 3 ML VIAL.NEB IH SCH ×4 (07:10→20:19)
[2023-10-03 09:52] VITALS: RESP 18
[2023-10-03] MEDS: POTASSIUM CHLORIDE TABS 20 MEQ TABLET.ER (FP) PO SCH (09:54)
[2023-10-03] MEDS: MIDODRINE HCL 5 MG TABLET PO SCH ×3 (09:54→17:57)
[2023-10-03] MEDS: LIDOCAINE 4% PATCH TP SCH (09:54)
[2023-10-03] MEDS ORDERED: POTASSIUM CHLORIDE ORAL LIQUID 20 MEQ/15 ML PO ONE (12:15)
[2023-10-03 12:23] LABS: ALBUMIN 1.8 g/dl (3.4-5.0); BLOOD UREA NITROGEN 13.4 mg/dL (7-18); CALCIUM 9.5 mg/dL (8.5-10.1); MAGNESIUM 1.8 mg/dL (1.8-2.4)
[2023-10-03 12:26] LABS: CREATININE 0.8 mg/dL (0.55-1.3)
[2023-10-03 12:28] LABS: BILIRUBIN,TOTAL 0.4 mg/dL (0.2-1); TOT PROT 5.6 g/dl (6.4-8.2)
[2023-10-03] MEDS: KCL 10 MEQ IVPB 10 MEQ/100 ML INFUS.BAG IVPB SCH ×2 (14:25→14:26)
[2023-10-03] MEDS: LIDOCAINE PATCH REMOVAL MC SCH (21:09)
[2023-10-04] MEDS: SODIUM CHLORIDE FOR INHALATION 3 ML VIAL.NEB IH SCH ×2 (07:15→11:18)
[2023-10-04 08:40] VITALS: BP 118/71; PULSE 99; TEMP 97.8
[2023-10-04] MEDS: POTASSIUM CHLORIDE TABS 20 MEQ TABLET.ER (FP) PO SCH (09:00)
[2023-10-04] MEDS: MIDODRINE HCL 5 MG TABLET PO SCH (09:00)
[2023-10-04] MEDS: LIDOCAINE 4% PATCH TP SCH (09:01)
== END 2023-10-04 11:40 | DRG 871 ==
LOC: JER 20:49 → JERBED 22:31 → JICU 09-17 05:09 → J6S 09-26 15:22
PROVIDERS: ADMIT Internal Medicine Pulmonary Disease; ATTEND Internal Medicine
PROC: 30233N1 Transfusion of Nonautologous Red Blood Cells into Peripheral Vein, Percutaneous Approach (ICD-10-PCS; 2023-09-16)
PROC: 05HN33Z Insertion of Infusion Device into Left Internal Jugular Vein, Percutaneous Approach (ICD-10-PCS; principal; 2023-09-17)
PROC: B544ZZA Ultrasonography of Left Jugular Veins, Guidance (ICD-10-PCS; 2023-09-17)
PROC: 0BH17EZ Insertion of Endotracheal Airway into Trachea, Via Natural or Artificial Opening (ICD-10-PCS; 2023-09-17)
PROC: 5A1945Z Respiratory Ventilation, 24-96 Consecutive Hours (ICD-10-PCS; 2023-09-17)
PROC: 05HM33Z Insertion of Infusion Device into Right Internal Jugular Vein, Percutaneous Approach (ICD-10-PCS; 2023-09-19)
PROC: B543ZZA Ultrasonography of Right Jugular Veins, Guidance (ICD-10-PCS; 2023-09-19)
PROC: 06H03DZ Insertion of Intraluminal Device into Inferior Vena Cava, Percutaneous Approach (ICD-10-PCS; 2023-09-30)
DX: A41.89 Other specified sepsis (principal); G93.41 Metabolic encephalopathy; I21.A1 Myocardial infarction type 2; R65.21 Severe sepsis with septic shock; J96.01 Acute respiratory failure with hypoxia; I46.9 Cardiac arrest, cause unspecified; J69.0 Pneumonitis due to inhalation of food and vomit; C78.5 Secondary malignant neoplasm of large intestine and rectum; N17.9 Acute kidney failure, unspecified; N39.0 Urinary tract infection, site not specified; E87.20 Acidosis, unspecified; E87.0 Hyperosmolality and hypernatremia; I82.422 Acute embolism and thrombosis of left iliac vein; I82.432 Acute embolism and thrombosis of left popliteal vein; C67.9 Malignant neoplasm of bladder, unspecified; R00.1 Bradycardia, unspecified; D64.9 Anemia, unspecified; E87.5 Hyperkalemia; E78.5 Hyperlipidemia, unspecified; B95.2 Enterococcus as the cause of diseases classified elsewhere; B96.4 Proteus (mirabilis) (morganii) as the cause of diseases classified elsewhere; D72.829 Elevated white blood cell count, unspecified; R79.89 Other specified abnormal findings of blood chemistry; E87.6 Hypokalemia; E83.42 Hypomagnesemia; D50.9 Iron deficiency anemia, unspecified
CPT/HCPCS: 0241U-QW; 36415; 36430; 36600; 37191; 70450-TC; 71045-TC-FY; 73562-TC-LT-FY; 74176-TC; 80048; 80053; 81003; 82272; 82550; 82553; 82728; 82747; 82803; 82962; 83010; 83540; 83550; 83605; 83615; 83735; 83880; 84100; 84466; 84484; 85014; 85025; 85027; 85045; 85610; 85730; 86850; 86870; 86880; 86900; 86901; 86902; 86922; 87040; 87070; 87086; 87186; 87205; 93005; 93010; 93306-TC; 93970-TC; 94002; 94640; 97163-GP; 99291; J1756; P9038; P9058

== ENCOUNTER 2023-11-14 05:21 | Observation (INO) | payer OTHER ==
[2023-11-14] MEDS ORDERED: METOCLOPRAMIDE HCL INJECTION 10 MG/2 ML VIAL ONE (06:35)
[2023-11-14] MEDS: SODIUM CHLORIDE 0.9% 500 ML INFUS.BAG IV ONE (07:03)
[2023-11-14 07:11] LABS: BASO % 0.2 % (0-2.0); EOS % 0.2 % (0-4.5); HEMOGLOBIN 7.7 GM/dL (11.7-16.9); LYMPH % 8.9 % (8-40); MCH 30.2 pg (25.7-33.7); MEAN CELL VOLUME 94.3 fl (80-96); MEAN PLT VOLUME 8.8 fl (7.5-11.1); NEUT % 81.7 % (42.8-82.8); PLATELET COUNT 256 10^3/uL (134-434); RBC 2.55 M/mm3 (4.00-5.60); RDW 20.2 % (11.9-15.9); WHITE BLOOD COUNT 6.7 K/mm3 (4.0-10.0)
[2023-11-14 07:24] LABS: POTASSIUM 3.9 mmol/L (3.5-5.1)
[2023-11-14 07:25] LABS: CALCIUM 8.5 mg/dL (8.5-10.1)
[2023-11-14 07:26] LABS: ALBUMIN 1.6 g/dl (3.4-5.0)
[2023-11-14 07:29] LABS: CREATININE 0.7 mg/dL (0.55-1.3)
[2023-11-14 07:30] LABS: BILIRUBIN,TOTAL 0.8 mg/dL (0.2-1); TOT PROT 5.6 g/dl (6.4-8.2)
[2023-11-14] MEDS ORDERED: MIDODRINE HCL 5 MG TABLET ONE (14:22)
[2023-11-14] MEDS: MIDODRINE HCL 5 MG TABLET PO SCH (14:25)
[2023-11-14] MEDS ORDERED: HALOPERIDOL LACTATE 5 MG/ML ONE (18:53)
[2023-11-14] MEDS: HALOPERIDOL LACTATE 5 MG/ML IM ONE (19:04)
[2023-11-15] MEDS: morphine SULFATE 10 MG/5 ML UNIT-DOSE CUP PO PRN (09:22)
[2023-11-15] MEDS: MIDODRINE HCL 5 MG TABLET PO SCH (18:45)
[2023-11-16] MEDS ORDERED: ACETAMINOPHEN 1000 MG/100 ML BAG IVPB PRN (08:35)
[2023-11-16] MEDS: MUPIROCIN 2% TOPICAL OINTMENT 22 GM TUBE TP SCH (15:40)
[2023-11-17] MEDS: ACETAMINOPHEN 1000 MG/100 ML BAG IVPB SCH (11:52)
[2023-11-17] MEDS: LIDOCAINE 4% PATCH TP SCH (11:53)
[2023-11-17] MEDS: morphine SULFATE 10 MG/5 ML UNIT-DOSE CUP PO PRN (13:50)
[2023-11-17] MEDS: LIDOCAINE PATCH REMOVAL MC SCH (22:08)
[2023-11-17 22:56] VITALS: BMI 23.5
[2023-11-18] MEDS: LOPERAMIDE HCL 2 MG CAPSULE PO ONE (15:01)
[2023-11-19] MEDS: LOPERAMIDE HCL 2 MG CAPSULE PO PRN (17:42)
[2023-11-27] MEDS: ACETAMINOPHEN 325 MG TABLET (FP) PO PRN (09:00)
[2023-11-27] MEDS ORDERED: IBUPROFEN 400 MG TABLET (FP) PO PRN (09:39)
[2023-11-27] MEDS ORDERED: morphine SULFATE 10 MG/5 ML UNIT-DOSE CUP PO PRN (11:18)
[2023-11-28 11:06] VITALS: BP 100/63; PULSE 91; RESP 17; TEMP 98
== END 2023-11-28 18:16 ==
LOC: JER 05:21 → UNDOADMOB 06:52 → JERBED 06:52 → INTOOBSV 06:52 → JERBED 11:09 → J6S 11-15 00:13
PROVIDERS: ADMIT Internal Medicine; ATTEND Internal Medicine
PROC: 3E023GC Introduction of Other Therapeutic Substance into Muscle, Percutaneous Approach (ICD-10-PCS; principal; 2023-11-14)
PROC: 3E033NZ Introduction of Analgesics, Hypnotics, Sedatives into Peripheral Vein, Percutaneous Approach (ICD-10-PCS; 2023-11-14)
PROC: 3E0337Z Introduction of Electrolytic and Water Balance Substance into Peripheral Vein, Percutaneous Approach (ICD-10-PCS; 2023-11-14)
DX: R52 Pain, unspecified (principal); C67.9 Malignant neoplasm of bladder, unspecified; C78.5 Secondary malignant neoplasm of large intestine and rectum; R62.7 Adult failure to thrive; J09.X2 Influenza due to identified novel influenza A virus with other respiratory manifestations; L89.150 Pressure ulcer of sacral region, unstageable; N17.9 Acute kidney failure, unspecified; Z86.74 Personal history of sudden cardiac arrest; D64.9 Anemia, unspecified; I10 Essential (primary) hypertension; E78.5 Hyperlipidemia, unspecified; Z88.0 Allergy status to penicillin
CPT/HCPCS: 0241U-QW; 36415; 71045-TC-FY; 80053; 85025; 93005; 93010; 96372; 96374; 97116-GP; 97162-GP; 99285-25; G0378; J0131

== ENCOUNTER 2024-01-16 12:05 | Inpatient (IN) | payer OTHER ==
[2024-01-16] MEDS ORDERED: PANTOPRAZOLE SODIUM 40 MG VIAL ONE (14:50)
[2024-01-16 14:54] LABS: BASO % 0.2 % (0-2.0); EOS % 0.5 % (0-4.5); HEMATOCRIT 22.6 % (35.4-49); LYMPH % 6.3 % (8-40); MCH 30.1 pg (25.7-33.7); MCHC 30.7 g/dl (32.0-35.9); MEAN CELL VOLUME 97.9 fl (80-96); MEAN PLT VOLUME 8.3 fl (7.5-11.1); MONO % 4.2 % (3.8-10.2); NEUT % 88.8 % (42.8-82.8); PLATELET COUNT 368 10^3/uL (134-434); RBC 2.31 M/mm3 (4.00-5.60); RDW 18.4 % (11.9-15.9); WHITE BLOOD COUNT 17.9 K/mm3 (4.0-10.0)
[2024-01-16 14:57] LABS: HEMOGLOBIN 6.9 GM/dL (11.7-16.9); INR 1.26 (0.83-1.09); PROTHROMBIN TIME (PATIENT) 14.6 SEC (9.7-13.0)
[2024-01-16] MEDS: PANTOPRAZOLE SODIUM 40 MG VIAL IVPUSH ONE (14:57)
[2024-01-16] MEDS: SODIUM CHLORIDE 0.9% 500 ML INFUS.BAG IV ONE (14:57)
[2024-01-16] MEDS: morphine CARPU-JECT 2 MG/1 ML DISP.SYRIN IVPUSH ONE (14:57)
[2024-01-16 15:00] LABS: ACTIVATED PTT 27.1 SECONDS (25.2-36.5)
[2024-01-16 15:15] LABS: POTASSIUM 3.8 mmol/L (3.5-5.1)
[2024-01-16 15:18] LABS: ALBUMIN 1.8 g/dl (3.4-5.0); BLOOD UREA NITROGEN 13.1 mg/dL (7-18); MAGNESIUM 1.7 mg/dL (1.8-2.4)
[2024-01-16 15:21] LABS: CREATININE 0.5 mg/dL (0.55-1.3)
[2024-01-16 15:22] LABS: TOT PROT 5.9 g/dl (6.4-8.2)
[2024-01-16 15:23] LABS: BILIRUBIN,TOTAL 0.4 mg/dL (0.2-1)
[2024-01-16] MEDS ORDERED: MAGNESIUM SULFATE IN WATER 2 GM/50 ML IVPB IVPB ONE (16:04)
[2024-01-16] MEDS: MAGNESIUM SULFATE IN WATER 2 GM/50 ML IVPB IVPB ONE (16:10)
[2024-01-16 17:06] LABS: EPI CELLS 19 /uL (0-25.1); HYALINE CASTS 10 /uL (0-3.1); PH,URINE >= 9.0 (5.0-8.0); URINE APPEARANCE TURBID; URINE BACTERIA >9,000 /uL (0-1359); URINE BILIRUBIN NEGATIVE (NEGATIVE); URINE COLOR YELLOW; URINE GLUCOSE (UA) NEGATIVE (NEGATIVE); URINE KETONE NEGATIVE (NEGATIVE); URINE LEUK ESTERASE 3+ (NEGATIVE); URINE NITRITE NEGATIVE (NEGATIVE); URINE PROTEIN 2+ (NEGATIVE); URINE WBC 248 /uL (0-25.8)
[2024-01-16 17:33] LABS: URINE CRYSTALS TRIPLE PHOS 2+ /hpf
[2024-01-16] MEDS ORDERED: VANCOMYCIN 1 GRAM (PRE-DOCKED) 1,000 MG/250 ML BAG IVPB ONE (18:15)
[2024-01-16] MEDS ORDERED: CEFEPIME 2 GM/100 ML BAG IVPB ONE (18:15)
[2024-01-16] MEDS: CEFEPIME 2 GM in DEXTROSE 5%-WATER - 100 ML IVPB ONE (18:24)
[2024-01-16] MEDS: VANCOMYCIN 1,000 MG in DEXTROSE 5%-WATER - 250 ML IVPB ONE (18:48)
[2024-01-17] MEDS ORDERED: CEFEPIME HCL 2 GM VIAL (RESTRICTED TO ID) IVPB SCH (08:00)
[2024-01-17] MEDS ORDERED: VANCOMYCIN/WATER FOR INJ (PEG) 1,000 MG/200 ML BAG IVPB SCH ×2 (08:00→18:00)
[2024-01-17] MEDS: CEFEPIME 2 GM in DEXTROSE 5%-WATER 100 ML IVPB SCH ×2 (09:29→21:20)
[2024-01-17] MEDS: MAGNESIUM 2GM/50ML STERILE WATER IVPB IVPB ONE (12:23)
[2024-01-17 14:57] VITALS: BMI 24.3
[2024-01-17] MEDS ORDERED: VANCOMYCIN/WATER FOR INJ (PEG) 1,000 MG/200 ML BAG IVPB ONE (18:00)
[2024-01-18] MEDS ORDERED: CEFTRIAXONE 1 GM in DEXTROSE 5%-WATER - 50 ML IVPB SCH (15:45)
[2024-01-18] MEDS ORDERED: CEFEPIME 2 GM in DEXTROSE 5%-WATER 100 ML IVPB SCH (22:00)
[2024-01-19] MEDS: CEFTRIAXONE 2 GM in DEXTROSE 5%-WATER 100 ML IVPB SCH (09:52)
[2024-01-20] MEDS: SULFAMETHOXAZOLE/TRIMETHOPRIM 800MG/160MG D.S. TABLET PO SCH (21:27)
[2024-01-21] MEDS: AMINO ACIDS/PROTEIN HYDROLYS 30 ML LIQUID.PKT PO SCH (17:46)
[2024-01-25] MEDS ORDERED: BANATROL PLUS POWDER PACKET PO PRN (13:30)
[2024-01-25] MEDS: PANTOPRAZOLE SODIUM 40 MG VIAL IVPUSH SCH (15:31)
[2024-01-25] MEDS: PANTOPRAZOLE 40 MG TABLET PO SCH (15:33)
[2024-01-27 22:26] VITALS: RESP 20
[2024-01-28 07:09] VITALS: PULSE 93
[2024-01-28 08:24] LABS: HEMATOCRIT 21.9 % (35.4-49); MCH 29.1 pg (25.7-33.7); MCHC 31.2 g/dl (32.0-35.9); MEAN CELL VOLUME 93.1 fl (80-96); MEAN PLT VOLUME 8.5 fl (7.5-11.1); PLATELET COUNT 351 10^3/uL (134-434); RBC 2.35 M/mm3 (4.00-5.60); RDW 19.2 % (11.9-15.9); WHITE BLOOD COUNT 11.3 K/mm3 (4.0-10.0)
[2024-01-28 08:39] LABS: CHLORIDE 100 mmol/L (98-107); SODIUM 134 mmol/L (136-145)
[2024-01-28 08:43] LABS: ALBUMIN 1.6 g/dl (3.4-5.0); ANION GAP 4 mmol/L (4-13); BLOOD UREA NITROGEN 7.6 mg/dL (7-18); CO2 31 mmol/L (21-32); GLUCOSE,RANDOM 71 mg/dL (74-106)
[2024-01-28 08:45] LABS: CREATININE 0.4 mg/dL (0.55-1.3)
[2024-01-28 08:46] LABS: SGOT/AST 9 U/L (15-37); SGPT/ALT < 6 U/L (13-61)
[2024-01-28 08:48] LABS: BILIRUBIN,TOTAL 0.7 mg/dL (0.2-1); HEMOGLOBIN 6.8 GM/dL (11.7-16.9); TOT PROT 5.5 g/dl (6.4-8.2)
[2024-01-28 08:51] LABS: ALK PHOS 97 U/L (45-117)
[2024-01-28 14:22] VITALS: BP 104/60; TEMP 97.6
[2024-01-28] MEDS: FUROSEMIDE 40 MG/4 ML INJECTABLE VIAL IVPUSH ONE (17:41)
== END 2024-01-28 18:45 | DRG 374 ==
LOC: JER 12:05 → JERBED 16:21 → J4W 20:47 → J7W 01-18 13:23
PROVIDERS: ADMIT Internal Medicine; ATTEND Internal Medicine
PROC: 30233N1 Transfusion of Nonautologous Red Blood Cells into Peripheral Vein, Percutaneous Approach (ICD-10-PCS; principal; 2024-01-16)
DX: C78.5 Secondary malignant neoplasm of large intestine and rectum (principal); E43 Unspecified severe protein-calorie malnutrition; D62 Acute posthemorrhagic anemia; I50.22 Chronic systolic (congestive) heart failure; K62.5 Hemorrhage of anus and rectum; N39.0 Urinary tract infection, site not specified; N17.9 Acute kidney failure, unspecified; I13.0 Hypertensive heart and chronic kidney disease with heart failure and stage 1 through stage 4 chronic kidney disease, or unspecified chronic kidney disease; I25.2 Old myocardial infarction; E83.42 Hypomagnesemia; E88.09 Other disorders of plasma-protein metabolism, not elsewhere classified; C67.9 Malignant neoplasm of bladder, unspecified; L89.152 Pressure ulcer of sacral region, stage 2; L89.620 Pressure ulcer of left heel, unstageable; L89.612 Pressure ulcer of right heel, stage 2; N18.9 Chronic kidney disease, unspecified; Z68.24 Body mass index [BMI] 24.0-24.9, adult
CPT/HCPCS: 0241U-QW; 36415; 36430; 71045-TC-FY; 71260-TC; 74177-TC; 80053; 81003; 82272; 83605; 83735; 85025; 85027; 85610; 85730; 86850; 86900; 86901; 86922; 87086; 87186; 87324; 87449; 93005; 93010; 97116-GP; 97161-GP; 99285-25; P9038; P9058; Q9967

== ENCOUNTER 2024-01-29 15:52 | Inpatient (IN) | payer OTHER ==
[2024-01-29] MEDS: morphine CARPU-JECT 2 MG/1 ML DISP.SYRIN IVPUSH ONE (18:30)
[2024-01-29] MEDS ORDERED: oxyCODONE HCL 5 MG TABLET ONE (20:22)
[2024-01-29] MEDS: oxyCODONE HCL 5 MG TABLET PO ONE (20:35)
[2024-01-29] MEDS: LIDOCAINE PATCH REMOVAL MC SCH (22:30)
[2024-01-29] MEDS ORDERED: LOPERAMIDE HCL 2 MG CAPSULE PO PRN (22:35)
[2024-01-29] MEDS ORDERED: morphine SULFATE 10 MG/5 ML UNIT-DOSE CUP PO PRN (22:35)
[2024-01-29 23:00] VITALS: BMI 21.4
[2024-01-29] MEDS: MIDODRINE HCL 5 MG TABLET PO SCH (23:29)
[2024-01-30] MEDS: LIDOCAINE 4% PATCH TP SCH (09:33)
[2024-01-30] MEDS ORDERED: MIDODRINE HCL 5 MG TABLET PO SCH (10:00)
[2024-01-30 12:30] VITALS: RESP 18
[2024-01-30 14:20] VITALS: BP 89/58; PULSE 89; TEMP 98.4
[2024-01-30] MEDS ORDERED: PATIENT'S OWN MEDICATION (NON-FORMULARY) (Lidocaine Patch Removal 1 EACH Each) MC SCH (22:00)
== END 2024-01-30 18:18 | DRG 811 ==
LOC: JER 15:52 → JERBED 18:22 → OBSVTOIN 21:36 → JERBED 21:56 → J8W 22:20
PROVIDERS: ADMIT Internal Medicine; ATTEND Nurse Practitioner Acute Care
DX: D62 Acute posthemorrhagic anemia (principal); E43 Unspecified severe protein-calorie malnutrition; C78.5 Secondary malignant neoplasm of large intestine and rectum; I50.22 Chronic systolic (congestive) heart failure; K92.1 Melena; C67.9 Malignant neoplasm of bladder, unspecified; I25.2 Old myocardial infarction; R19.7 Diarrhea, unspecified; I95.89 Other hypotension; Z86.74 Personal history of sudden cardiac arrest; Z68.21 Body mass index [BMI] 21.0-21.9, adult; I11.0 Hypertensive heart disease with heart failure; I25.10 Atherosclerotic heart disease of native coronary artery without angina pectoris; L89.620 Pressure ulcer of left heel, unstageable; L89.612 Pressure ulcer of right heel, stage 2
CPT/HCPCS: 73630-TC-LT; 93005; 93010; 99285-25; G0378

== ENCOUNTER 2024-03-06 04:33 | Inpatient (IN) | payer OTHER ==
[2024-03-06 04:42] VITALS: BMI 13.1
[2024-03-06 05:17] LABS: MCH 28.9 pg (25.7-33.7); MCHC 26.9 g/dl (32.0-35.9); MEAN CELL VOLUME 107.3 fl (80-96); MEAN PLT VOLUME 9.6 fl (7.5-11.1); PLATELET COUNT 342 10^3/uL (134-434); RDW 23.2 % (11.9-15.9)
[2024-03-06 05:26] LABS: CHLORIDE 101 mmol/L (98-107); SODIUM 133 mmol/L (136-145)
[2024-03-06 05:28] LABS: CALCIUM 9.4 mg/dL (8.5-10.1)
[2024-03-06 05:29] LABS: ALBUMIN 1.3 g/dl (3.4-5.0); BLOOD UREA NITROGEN 33.1 mg/dL (7-18); CO2 8 mmol/L (21-32); GLUCOSE,RANDOM 231 mg/dL (74-106)
[2024-03-06 05:32] LABS: CREATININE 1.1 mg/dL (0.55-1.3); SGOT/AST 27 U/L (15-37); SGPT/ALT 6 U/L (13-61)
[2024-03-06 05:34] LABS: BILIRUBIN,TOTAL 0.4 mg/dL (0.2-1); WHITE BLOOD COUNT 29.5 K/mm3 (4.0-10.0)
[2024-03-06 05:35] LABS: ALK PHOS 209 U/L (45-117)
[2024-03-06 05:38] LABS: ANION GAP 23 mmol/L (4-13); POTASSIUM 6.3 mmol/L (3.5-5.1)
[2024-03-06 08:34] VITALS: RESP 20
[2024-03-06 09:56] LABS: ANISOCYTOSIS 3+; MACROCYTOSIS 2+
[2024-03-06 12:01] VITALS: BP 37/14; PULSE 73; TEMP 93
== END 2024-03-06 11:00 | disposition expired | DRG 377 ==
LOC: JER 04:33 → JERBED 06:38
PROVIDERS: ADMIT Internal Medicine; ATTEND Internal Medicine
PROC: 30233N1 Transfusion of Nonautologous Red Blood Cells into Peripheral Vein, Percutaneous Approach (ICD-10-PCS; principal; 2024-03-06)
DX: K62.5 Hemorrhage of anus and rectum (principal); E43 Unspecified severe protein-calorie malnutrition; G93.41 Metabolic encephalopathy; Z68.1 Body mass index [BMI] 19.9 or less, adult; C78.5 Secondary malignant neoplasm of large intestine and rectum; D64.9 Anemia, unspecified; I25.2 Old myocardial infarction; C67.9 Malignant neoplasm of bladder, unspecified; I50.9 Heart failure, unspecified; I25.10 Atherosclerotic heart disease of native coronary artery without angina pectoris; Z66 Do not resuscitate; I11.0 Hypertensive heart disease with heart failure; Z86.74 Personal history of sudden cardiac arrest; Z86.718 Personal history of other venous thrombosis and embolism
CPT/HCPCS: 36415; 71045-TC-FY; 80053; 85025; 86078; 86850; 86900; 86901; 86922; 93005; 93010; 99285-25